=== PATIENT | male | born 1985 | race Caucasian/White ===

== ENCOUNTER 2017-01-07 16:40 | Emergency (ER) | payer SELFPAY ==
[2017-01-07 16:59] VITALS: BP 127/65
[2017-01-07] MEDS ORDERED: Penicillin G Benzathine 2.4MU* 2,400,000 UNITS/4 ML SYR IM ONE (17:13)
--- NOTE | 2017-01-07 20:44 | UC ---
Nandini Iyer Thomas, scribed for Patricio Echevarria MD on 01/07/17 at 1721 . General HPI - HPI Summary HPI Summary: The pt is a 31 y/o M presenting to Urgent Care with a positive diagnosis of syphilis a few days ago. Today, he was referred to urgent care by the [facility] with concerns that his current antibiotics are too low in dosage. The patient would like to be given IM antibiotics today at urgent care. He complains of 2/10 groin pain due to a lump on his groin that was evaluated at urgent care last week. - History of Current Complaint Chief Complaint: UCGU Stated Complaint: PERSONAL Time Seen by Provider: 01/07/17 17:00 Hx Obtained From: Patient Onset/Duration: Lasting Days - diagnosis a few days ago, Still Present Timing: Constant Associated Signs & Symptoms: Positive: Other - Groin pain due to lump on groin - Allergy/Home Medications Allergies/Adverse Reactions: Allergies Allergy/AdvReac Type Severity Reaction Status Date / Time No Known Allergies Allergy Verified 01/07/17 16:59 PMH/Surg Hx/FS Hx/Imm Hx Previously Healthy: Yes - NEGATIVE: DM, HTN - Surgical History Surgical History: None - Family History Known Family History: Positive: Cardiac Disease - Social History Lives: With Family Alcohol Use: Occasionally Alcohol Amount: SOCIAL Substance Use Type: None Smoking Status (MU): Current Some Day Smoker Type: Cigarettes Amount Used/How Often: "SOCIALLY" - Immunization History Most Recent Influenza Vaccination: none Most Recent Tetanus Shot: up to date Review of Systems Constitutional: Other - NEGATIVE: fever Genitourinary: Other - Groin pain Is Patient Immunocompromised?: No All Other Systems Reviewed And Are Negative: Yes Physical Exam Triage Information Reviewed: Yes Vital Signs: Initial Vital Signs Temp 98.1 F 01/07/17 16:55 Pulse 60 01/07/17 16:55 Resp 18 01/07/17 16:55 BP 127/65 01/07/17 16:55 Pulse Ox 100 01/07/17 16:55 Vital Signs Reviewed: Yes - Additional Comments VITAL SIGNS: Reviewed. GENERAL: Patient is a well developed and nourished male who is lying comfortable in the stretcher. Patient is not in any acute respiratory distress. HEAD AND FACE: Normocephalic EYES: PERRLA, EOMI x 2. EARS: Hearing grossly intact. MOUTH: Oropharynx within normal limits. NECK: Supple, trachea is midline, no adenopathy, no JVD, no carotid bruit. CHEST: Symmetric, no tenderness at palpation LUNGS: Clear to auscultation bilaterally. No wheezing or crackles. CVS: Regular rate and rhythm, S1 and S2 present, no murmurs or gallops appreciated. ABDOMEN: Soft, non-tender. Bowel sounds are normal. No abdominal abnormal pulsations. EXTREMITIES: Full ROM in all major joints, no edema, no cyanosis or clubbing. NEURO: Alert and oriented x 3. No acute neurological deficits. Speech is normal and follows commands. SKIN: Dry and warm Course/Dx - Course Course Of Treatment: The pt is a 31 y/o M presenting to Urgent Care with a positive diagnosis of syphilis a few days ago. Today, he was referred to urgent care by the [facility] with concerns that his current antibiotics are too low in dosage. The patient would like to be given IM antibiotics today at urgent care. The patient was given Bicillin and instructed to follow up with primary care. - Differential Dx - Multi-Symptom Provider Diagnoses: Sexually transmitted disease Discharge - Discharge Plan Condition: Stable Disposition: HOME Patient Education Materials: Sexually Transmitted Diseases (ED) Referrals: [facility] [Outside] - 3 Days Additional Instructions: Follow up with your primary care provider in 3 days. If you do not have one, you can use the [facility] service to find one and make an appointment. The documentation as recorded by the Nandini choi Thomas accurately reflects the service I personally performed and the decisions made by , Patricio Echevarria MD.
== END 2017-01-07 17:45 | disposition home or self-care (01) ==
LOC: UCEAST 16:40
DX: A53.9 Syphilis, unspecified (principal); Z72.0 Tobacco use
CPT/HCPCS: 96372; 99211; G0463; J0561